=== PATIENT | female | born 2000 | race African-American/Black ===

== ENCOUNTER 2023-05-18 18:28 | Emergency (ER) | payer MEDICAID ==
[~2023-05-18] VITALS: Ht 167.6 cm; Wt 65.8 kg
[2023-05-18 20:34] LABS: BASOPHILS % (AUTO) 0.5 % (0.0-2.0); EOSINOPHILS # (AUTO) 0.1 K/uL (0.0-0.7); EOSINOPHILS % (AUTO) 1.5 % (0.0-7.0); HEMATOCRIT 37.6 % (31.2-41.9); HEMOGLOBIN 12.5 g/dL (10.9-14.3); LYMPHOCYTES % (AUTO) 31.9 % (20.5-51.5); MEAN CORPUSCULAR HEMOGLOBIN 30.5 uug (24.7-32.8); MEAN CORPUSCULAR HGB CONC 33 g/dL (32.3-35.6); MEAN CORPUSCULAR VOLUME 92.1 fL (75.5-95.3); MONOCYTES # (AUTO) 0.6 K/uL (0.1-1.30); MONOCYTES % (AUTO) 9.9 % (0.0-11.0); NEUTROPHILS # (AUTO) 3.4 K/uL (1.8-8.9); NEUTROPHILS % (AUTO) 56.2 % (38.5-71.5); PLATELET COUNT (AUTO) 208 K/uL (179-408); RED BLOOD CELL COUNT(AUTO) 4.09 MIL/uL (3.63-4.92); RED CELL DISTRIBUTION WIDTH 14.6 % (12.3-17.7); WHITE BLOOD COUNT (AUTO) 6.1 K/uL (3.8-11.8)
[2023-05-18 20:37] LABS: DIFFERENTIAL COMMENT 1
[2023-05-18 20:38] LABS: *URINE HCG, QUAL NEGATIVE (NEGATIVE)
[2023-05-18 20:46] LABS: ETHANOL < 3 MG/DL (0-10)
[2023-05-18 20:47] LABS: ALANINE AMINOTRANSFERASE 11 U/L (14-59); ALBUMIN 3.9 g/dL (3.4-5.0); ALKALINE PHOSPHATASE 55 U/L (50-136); ASPARTATE AMINOTRANSFERASE 10 U/L (15-37); BILIRUBIN,DIRECT 0.3 mg/dL (0.0-0.2); BILIRUBIN,TOTAL 1.6 mg/dL (0.2-1.0); CALCIUM 9.4 mg/dL (8.5-10.1); CARBON DIOXIDE 28 mmol/L (21-32); CHLORIDE 102 mmol/L (98-107); CREATININE 0.7 mg/dL (0.6-1.3); GLUCOSE 79 mg/dL (74-106); POTASSIUM 3.6 mmol/L (3.5-5.1); SODIUM SERUM 139 mmol/L (136-145); UREA NITROGEN, BLOOD 10 mg/dL (7-18)
[2023-05-18 20:48] LABS: ACETAMINOPHEN < 10.0 ug/mL (10-30)
[2023-05-18 20:50] LABS: *AMPHETAMINE, URINE NEGATIVE (NEGATIVE); *BARBITURATE, URINE NEGATIVE (NEGATIVE); *BENZODIAZEPINE, URINE NEGATIVE (NEGATIVE); *CANNABINOID, URINE POSITIVE (NEGATIVE); *COCCAINE, URINE NEGATIVE (NEGATIVE); *OPIATE, URINE NEGATIVE (NEGATIVE); *PHENCYCLIDINE SCREEN,URINE NEGATIVE (NEGATIVE); FENTANYL, URINE NEGATIVE (NEGATIVE)
[2023-05-18 23:17] VITALS: BP 122/75; TEMP 98; O2SAT 100
== END 2023-05-18 23:18 | disposition home or self-care (01) ==
LOC: ER 18:30
DX: F32.9 Major depressive disorder, single episode, unspecified (principal); F41.9 Anxiety disorder, unspecified; F91.1 Conduct disorder, childhood-onset type; R07.89 Other chest pain
CPT/HCPCS: 36415; 84703; 85025; 93005; A4663; G0480

== ENCOUNTER 2023-06-21 21:55 | Emergency (ER) | payer MEDICAID ==
[~2023-06-21] VITALS: Ht 167.6 cm; Wt 65.8 kg
[2023-06-21] MEDS ORDERED: ONDANSETRON HCL 4 MG TABLET ONE (22:41)
[2023-06-21] MEDS ORDERED: ONDANSETRON HCL 4 MG TABLET PO ONE (22:45)
[2023-06-21 22:47] LABS: BASOPHILS % (AUTO) 0.9 % (0.0-2.0); EOSINOPHILS % (AUTO) 0.8 % (0.0-7.0); HEMATOCRIT 36.3 % (31.2-41.9); HEMOGLOBIN 11.9 g/dL (10.9-14.3); LYMPHOCYTES # (AUTO) 1.6 K/uL (0.8-4.8); LYMPHOCYTES % (AUTO) 33.6 % (20.5-51.5); MEAN CORPUSCULAR HEMOGLOBIN 30.2 uug (24.7-32.8); MEAN CORPUSCULAR HGB CONC 33 g/dL (32.3-35.6); MEAN CORPUSCULAR VOLUME 92.4 fL (75.5-95.3); MONOCYTES # (AUTO) 0.4 K/uL (0.1-1.30); NEUTROPHILS # (AUTO) 2.7 K/uL (1.8-8.9); NEUTROPHILS % (AUTO) 55.7 % (38.5-71.5); PLATELET COUNT (AUTO) 227 K/uL (179-408); RED BLOOD CELL COUNT(AUTO) 3.93 MIL/uL (3.63-4.92); WHITE BLOOD COUNT (AUTO) 4.8 K/uL (3.8-11.8)
[2023-06-21 22:55] LABS: CALCIUM 9.2 mg/dL (8.5-10.1); CREATININE 0.8 mg/dL (0.6-1.3); POTASSIUM 3.6 mmol/L (3.5-5.1)
[2023-06-22] MEDS ORDERED: ONDA4TAB5 PO (00:50)
[2023-06-22] MEDS ORDERED: ACET1TAB23 PO (00:50)
[2023-06-22 01:07] VITALS: BP 121/81; TEMP 98.5; O2SAT 100
== END 2023-06-22 01:08 | disposition home or self-care (01) ==
LOC: ER 21:56
DX: K52.9 Noninfective gastroenteritis and colitis, unspecified (principal); Z79.899 Other long term (current) drug therapy
CPT/HCPCS: 36415; 85025; A4663; Q0162

== ENCOUNTER 2023-11-02 23:54 | Emergency (ER) | payer MEDICAID ==
[~2023-11-02] VITALS: Ht 167.6 cm; Wt 63.5 kg
[~2023-11-02 23:54] MED LIST: ACET1TAB23 PO; CEPH500C2 PO; NEOM1OIN19 TP; ONDA4TAB5 PO
[2023-11-03] MEDS ORDERED: KETOROLAC TROMETHAMINE 30 MG INJ ONE (01:22)
[2023-11-03] MEDS: KETOROLAC TROMETHAMINE 30 MG INJ IM ONE (01:25)
[2023-11-03] MEDS ORDERED: HYDR-4209 PO (02:56)
[2023-11-03] MEDS ORDERED: NAPR500T6 PO (02:56)
[2023-11-03 04:40] VITALS: BP 134/77; TEMP 98.7; O2SAT 99
== END 2023-11-03 03:15 | disposition home or self-care (01) ==
LOC: ER 23:58
DX: S93.691A Other sprain of right foot, initial encounter (principal); Z79.899 Other long term (current) drug therapy; V89.2XXA Person injured in unspecified motor-vehicle accident, traffic, initial encounter; Y93.89 Activity, other specified; Y92.89 Other specified places as the place of occurrence of the external cause; Y99.8 Other external cause status
CPT/HCPCS: 99284; 73600; 73630; 96372; J1885; A4606; A4663